=== PATIENT | female | born 2005 | race Two or more races ===

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

== ENCOUNTER 2024-08-09 09:54 | Emergency (ER) | payer OTHER ==
[~2024-08-09] VITALS: Ht 165.1 cm; Wt 76.5 kg
[~2024-08-09 09:54] MED LIST: BACDST PO; OMEP-434 PO; PANT40TA2 PO; ZOFR4T PO
[2024-08-09 10:43] LABS: Urine Bacteria None Seen /hpf (None Seen); Urine WBC None Seen /hpf (0 - 5)
[2024-08-09 11:12] LABS: Urine Blood Negative /uL (Negative); Urine Clarity Clear (Clear); Urine Color Colorless (Yellow); Urine Protein, UAD Negative (Negative); Urine Specific Gravity 1.007 (1.001-1.035); Urine Urobilinogen Normal (Negative)
--- NOTE | 2024-08-09 11:23 | ED.PDOC ---
SOB-HPI HPI Comments 18y F who presents to the ED for chief complaint of flu- like symptoms. Pt states she has been having flu-like symptoms including fever, cough, sore throat with associated nausea and vomiting since 1 days prior. Pt states she has also been having associated upper back pain with associated generalized malaise. Pt states she had fever of 102 F and states she tried taking Tylenol but states due to her nausea and vomiting, she was unable to keep it down and had vomiting episode. Pt otherwise denies any associated sick contacts. Pt otherwise denies diarrhea, chills, headache, dizziness, chest pain or shortness of breath. Pt in the ED, has noted temp of 102.1F and heart rate of 110 with all other vitals in normal range. Pt otherwise denies any other symptoms at this time. 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 Family History Family History: Reviewed,noncontributory to illness Social History Smoker: Non-Smoker Alcohol: Denies ETOH Use Drugs: Marijuana Lives In: Home Constitutional: reports: fatigue, fever, malaise, weakness; denies: chills, diaphoresis, sweats, others EENTM: reports: throat pain; denies: blurred vision, double vision, ear bleeding, ear discharge, ear drainage, ear pain, ear ringing, eye pain, eye redness, hearing loss, mouth pain, mouth swelling, nasal discharge, nose bleeding, nose congestion, nose pain, photophobia, tearing, throat swelling, voice changes, others Respiratory: reports: cough; denies: hemoptysis, orthopnea, SOB at rest, shortness of breath, SOB with excertion, stridor, wheezing, others Cardiovascular: denies: chest pain, dizzy spells, diaphoresis, Dyspnea on exertion, edema, irregular heart beat, left arm pain, lightheadedness, palpitations, PND, syncope, others Gastrointestinal: denies: abdomen distended, abdominal pain, blood streaked bowels, constipated, diarrhea, dysphagia, difficulty swallowing, hematemesis, melena, nausea, poor appetite, poor fluid intake, rectal bleeding, rectal pain, vomiting, others Genitourinary: denies: abnormal vagina bleeding, burning, dyspareunia, dysuria, flank pain, frequency, hematuria, incontinence, pain, , vagina discha rge, urgency, others Neurological: denies: dizziness, fainting, headache, left sided numbness, left sided weakness, numbness, paresthesia, pre-existing deficit, right sided numbness, right sided weakness, seizure, speech problems, tingling, tremors, weakness, others Musculoskeletal: denies: back pain, gout, joint pain, joint swelling, muscle pain, muscle stiffness, neck pain, others Integumetry: denies: bruises, change in color, change in hair/nails, dryness, laceration, lesions, lumps, rash, wounds, others Allergic/Immunocompromised: denies: Difficulty Healing, Frequent Infections, Hives, Itching, others Hematologic/Lymphatic: denies: anemia, blood clots, easy bleeding, easy bruising, swollen glands, others Endocrine: denies: excessive hunger, excessive sweating, excessive thirst, excessive urination, flushing, intolerance to cold, intolerance to heat, unexplained weight gain, unexplained weight loss, others Psychiatric: denies: anxiety, bipolar disorder, depression, hopeless, panic disorder, schizophrenia, sleepless, suicidal, others All Other Systems: Reviewed and Negative Physical Exam General Appearance: Mild Distress HEENT: Other (dry mucous membranes) Neck: Full Range of Motion, Normal Inspection Respiratory: Lungs Clear, No Accessory Muscle Use, No Respiratory Distress, Normal Breath Sounds Cardiovascular: No Edema, No JVD, Tachycardia Breast Exam: Deferred Gastrointestinal: Non Tender, Soft Genitalia: Deferred Pelvic: Deferred Rectal: Deferred Extremities: Normal inspection, Normal range of motion, Non-tender, No pedal edema Neurologic: Alert, No Motor Deficits, Normal Affect, Normal Mood, No Sensory Deficits Cerebellar Function: NOT DONE Reflexes: NOT DONE Skin: NOT DONE Lymphatic: NOT DONE Was a procedure done? Was a procedure done?: No Differential Dx Differential Diagnosis: Bronchitis, Pneumonia, Respiratory Distress, Pharyngitis, URI Comments Influenza, COVID, UTI, dehydration, sepsis, viral syndrome, electrolyte imbalance, among others X-Ray, Labs, Meds, VS Vital Signs Date Time Temp Pulse Resp B/P (MAP) Pulse Ox O2 Delivery O2 Flow Rate FiO2 08/09/24 15:28 79 14 96 Room Air* 0 21 08/09/24 15:22 79 14 119/59 (79) 96 08/09/24 14:03 100.0 08/09/24 14:00 100.0 88 17 119/59 (79) 99 100.0 08/09/24 13:33 102.1 08/09/24 10:17 102.1 110 20 133/81 (98) 99 Lab Test 08/09/24 13:42 08/09/24 11:00 08/09/24 10:42 Range/Units Influenza Type A Antigen Positive Negative Influenza Type B Antigen Negative Negative SARS-CoV-2 Antigen (Rapid) Negative NEGATIVE White Blood Count 5.0 4.4-10.8 10^3/uL Red Blood Count 5.04 4.0-5.20 10^6/uL Hemoglobin 9.3 L 12.2-16.2 g/dL Hematocrit 30.4 L 36.0-46.0 % Mean Corpuscular Volume 60.4 L 80.0-100.0 fL Mean Corpuscular Hemoglobin 18.5 L 28.0-32.0 pg Mean Corpuscular Hemoglobin Concent 30.6 L 32.0-36.0 g/dL Red Cell Distribution Width 18.2 H 11.8-14.3 % Platelet Count 245 140-450 10^3/uL Mean Platelet Volume 8.6 6.9-10.8 fL Neutrophils (%) (Auto) 37.0-80.0 % Lymphocytes (%) (Auto) 10.0-50.0 % Monocytes (%) (Auto) 0.0-12.0 % Basophils (%) (Auto) 0.0-2.0 % Neutrophils # (Auto) 1.6-8.6 10 ^3/uL Lymphocytes # (Auto) 0.4-5.4 10 ^3/uL Monocytes # (Auto) 0-1.3 10 ^3/uL Differential Total Cells Counted 100.0 100 Neutrophils % (Manual) 70 37.0-80.0 Band Neutrophils % (Manual) 0 Lymphocytes % (Manual) 6 L 10.0-50.0 Monocytes % (Manual) 24 H 0-12 Eosinophils % (Manual) 0 0-7 Basophils % (Manual) 0 0.0-2.0 Metamyelocytes % (manual) 0 Myelocytes % (Manual) 0 Promyelocytes % (Manual) 0 Blast Cells % (Manual) 0 Reactive Lymphocytes 0 Platelet Estimate Adequate Hypochromasia (manual) Marked Microcytosis Moderate Ovalocytes Few Stomatocytes Few Sodium Level 135 L 136-145 mmol/L Potassium Level 2.7 L 3.5-5.1 mmol/L Chloride Level 101 98-107 mmol/L Carbon Dioxide Level 23 20-31 mmol/L Anion Gap 11 5-15 Blood Urea Nitrogen < 5 L 9-23 mg/dL Creatinine 0.81 0.550-1.02 mg/dL Glomerular Filtration Rate Calc 107 >90 mL/min BUN/Creatinine Ratio 6.2 L 10.0-20.0 Serum Glucose 129 H 74-106 mg/dL Lactic Acid Level 1.8 0.4-2.0 mmol/L Calcium Level 9.8 8.7-10.4 mg/dL Beta HCG, Quantitative 2.3 1.5-4.2 mIU/mL Urine Color Colorless Yellow Urine Clarity Clear Clear Urine pH 6.0 5.0-9.0 Urine Specific [place] 1.007 1.001-1.035 Urine Protein Negative Negative Urine Ketones Negative Negative Urine Blood Negative Negative /uL Urine Nitrite Negative Negative Urine Bilirubin Negative Negative Urine Urobilinogen Normal Negative mg/dL Urine Leukocyte Esterase Negative Negative /uL Urine RBC <1 0 - 4 /hpf Urine WBC None seen 0 - 5 /hpf Urine Squamous Epithelial Cells Few <5 /hpf Urine Bacteria None seen None Seen /hpf Urine Glucose Normal Normal mg/dL Current Medications Medications (Trade) Dose Ordered Sig/Benita Route Start Time Stop Time Status Last Admin Sodium Chloride 1,700 ml @ 1,700 mls/hr ONCE ONCE IV 08/09/24 10:45 08/09/24 11:44 DC 08/09/24 13:29 Ondansetron HCl (Zofran) 4 mg ONCE ONCE IV 08/09/24 10:45 08/09/24 10:46 DC 08/09/24 13:30 Acetaminophen (Tylenol Tablet) 1,000 mg ONCE ONCE PO 08/09/24 10:45 08/09/24 10:46 DC 08/09/24 13:33 Potassium Chloride (Klor-Con Tablet) 40 meq ONCE ONCE PO 08/09/24 12:30 08/09/24 12:31 DC 08/09/24 13:36 Potassium Chloride 100 ml @ 50 mls/hr ONCE ONCE IV 08/09/24 12:30 08/09/24 14:29 DC 08/09/24 13:54 X-Ray, Labs, Meds, VS Comment 18-year-old female with no significant past medical history complaining of body aches, cough, nausea, vomiting and fever Vitals remarkable for temperature 102.1, heart rate 110 Exam remarkable for dry mucous membranes Rhythm Strip independently interpreted by me: Sinus tach, rate 110, no ectopy. Chest x-ray unremarkable CBC remarkable for hemoglobin 9.3, hematocrit 30.4, basic metabolic panel remarkable for sodium 135, potassium 2.7, lactate normal, hCG negative, UA unremarkable Influenza A positive, COVID negative Patient treated with the following in the ED: 30 cc/kilogram IV normal saline bolus, Zofran 4 mg IV, Tylenol 1 g p.o., KCl 40 mEq p.o. and K rider 20 mEq IV On re-evaluation, patient states she is feeling better. Vitals are stable 81. Hospitalization was considered, however patient had rapid improvement of her symptoms with treatment in the ED, and I no longer feel hospitalization is necessary. Patient appears stable for outpatient treatment with close follow-up with her primary physician. I will prescribe Tamiflu, antiemetics, and antipyretics. Rx Tamiflu, Zofran, Tylenol, ibuprofen Time of 1ST Reevaluation: 12:00 Reevaluation 1ST: Unchanged Time of 2ND Reevaluation: 15:10 Reevaluation 2ND: Improved Patient Education/Counseling: Diagnosis, Treatment Family Education/Counseling: No Family Present Departure 1 Departure Time of Disposition: 15:10 Impression: Primary Impression: Influenza A Additional Impression: Electrolyte imbalance Disposition: 01 HOME / SELF CARE / HOMELESS Condition: Stable Additional Instructions: Your lab tests showed you have Influenza A, low sodium and low potassium. Chest x-ray was normal. We have corrected the sodium and potassium in the ER. I have prescribed antiviral medication to treat influenza as well as medication for fever, nausea and vomiting. Follow-up with your primary doctor in 1-2 days, and return to ER for persistent or worsening symptoms. e-Prescriptions Ibuprofen Micronized (Ibuprofen) 800 Mg Tab 800 MG PO Q8HP PRN, #30 TAB prn fever or pain, take with food Prov: AU HENNY,ALEISHA T MD 08/09/24 Acetaminophen (Tylenol Extra Strength) 500 Mg Tab 1000 MG PO Q6HPRN PRN, #30 TAB prn fever or pain Prov: ALEISHA SRIVASTAVA MD 08/09/24 Ondansetron Odt 4MG Tab (ZOFRAN PO) 4 Mg Tb 4 MG PO Q6HP PRN, #30 TAB prn nausea/vomiting ODT TAB-DISSOLVE IN MOUTH, THEN SWALLOW Prov: ALEISHA SRIVASTAVA MD 08/09/24 Oseltamivir Phosphate (Tamiflu) 75 Mg Cap 1 CAP PO BID for 5 Days, #10 CAP Prov: ALEISHA SRIVASTAVA MD 08/09/24 Discharged With: Relative Critical Care Note Critical Care Time?: No Stability Stability form required: No Heart Score Heart Score: Heart Score Response (Comments) Value History N/A 0 EKG N/A 0 Age N/A 0 Risk Factors N/A 0 Troponin N/A 0 Total 0 I personally scribed for ALEISHA SRIVASTAVA MD ([email or web address]) on 08/09/24 at 11:23. Electronically submitted by Cristobal Javier ([email or web address]). ALEISHA SRIVASTAVA MD Aug 09, 2024 11:23
[2024-08-09 11:31] LABS: Chloride 101 mmol/L (98-107); Potassium 2.7 mmol/L (3.5-5.1); Sodium 135 mmol/L (136-145)
[2024-08-09 11:32] LABS: Anion Gap 11 (5-15); Carbon Dioxide 23 mmol/L (20-31)
[2024-08-09 11:33] LABS: Calcium 9.8 mg/dL (8.7-10.4)
[2024-08-09 11:34] LABS: Red Cell Distribution Width 18.2 % (11.8-14.3)
[2024-08-09 11:35] LABS: Hematocrit 30.4 % (36.0-46.0); Hemoglobin 9.3 g/dL (12.2-16.2); Mean Corpuscular Hemoglobin 18.5 pg (28.0-32.0); Mean Corpuscular Hgb Conc. 30.6 g/dL (32.0-36.0); Mean Corpuscular Volume 60.4 fL (80.0-100.0); Platelet Count (auto) 245 10^3/uL (140-450); Red Blood Cells 5.04 10^6/uL (4.0-5.20)
[2024-08-09 11:37] LABS: Glucose 129 mg/dL (74-106)
[2024-08-09 11:40] LABS: BUN/Creatinine Ratio 6.2 (10.0-20.0); Blood Urea Nitrogen < 5 mg/dL (9-23)
[2024-08-09 11:41] LABS: Band Neutrophils % (manual) 0; Basophils % (manual) 0 (0.0-2.0); Blast Cells 0; Eosinophils % (manual) 0 (0-7); Metamyelocytes % 0; Myelocytes % 0; Promyelocytes % 0; Reactive Lymphocytes 0
[2024-08-09 12:13] LABS: Ovalocytes FEW; Platelet Estimate Adequate
[2024-08-09 12:14] LABS: Hypochromia Marked; Stomatocytes Few
[2024-08-09 12:17] LABS: Lymphocytes % (manual) 6 (10.0-50.0); Monocytes % (manual) 24 (0-12)
--- NOTE | 2024-08-09 13:04 | DVH ---
CHEST RADIOGRAPH Indication: cough Technique: Single frontal view of the chest was obtained Comparison: None FINDINGS: Lines and Tubes: None Lungs: No focal consolidation. Pleura: No effusion. No pneumothorax. Cardiomediastinal contours: Unremarkable Bones: No acute osseous abnormality. IMPRESSION: No acute cardiopulmonary disease.
[2024-08-09] MEDS: SODIUM CHLORIDE 0.9% 1,700 ML IV ONE (13:29)
[2024-08-09] MEDS: ONDANSETRON HCL 4 MG/2 ML VIAL IV ONE (13:30)
[2024-08-09] MEDS: ACETAMINOPHEN 500 MG TAB or CAP PO ONE (13:33)
[2024-08-09] MEDS: POTASSIUM CHL 20 Meq TABLET PO ONE (13:36)
[2024-08-09] MEDS: POTASSIUM CHL 20MEQ/100ML 100 ML IV ONE (13:54)
[2024-08-09 14:03] VITALS: TEMP 100
[2024-08-09 14:29] LABS: COVID19 ANTIGEN SOFIA FIA NEGATIVE (NEGATIVE); Rapid Influenza B Negative (Negative)
[2024-08-09 14:32] LABS: Rapid Influenza A Positive (Negative)
[2024-08-09] MEDS ORDERED: ACET-1304 PO (15:14)
[2024-08-09] MEDS ORDERED: ZOFR4T PO (15:14)
[2024-08-09] MEDS ORDERED: IBUP-1455 PO (15:14)
[2024-08-09] MEDS ORDERED: OSEL75CA5 PO (15:14)
[2024-08-09 15:22] VITALS: BP 119/59
[2024-08-09 15:28] VITALS: PULSE 79; RESP 14; O2SAT 96
== END 2024-08-09 16:45 | disposition home or self-care (01) ==
LOC: ER 09:54
DX: J10.1 Influenza due to other identified influenza virus with other respiratory manifestations (principal); E87.8 Other disorders of electrolyte and fluid balance, not elsewhere classified; Z20.822 Contact with and (suspected) exposure to COVID-19
CPT/HCPCS: 36415; 71045; 80048; 81001; 83605; 84702; 85007; 85027; 87426; 87804; 96365; 96366; 96375; 99284; J2405; J3480; J7030; J7040; J7050